=== PATIENT | male | born 1980 | race Caucasian/White ===

== ENCOUNTER → 2019-09-30 17:48 | Outpatient (CLI) | payer OTHER, SELFPAY ==
--- NOTE | 2019-09-30 17:54 | DI.MRI.S_ITS ---
PROCEDURE: MR LUMBAR SPINE WO CON INDICATIONS: LOW BACK PAIN, RIGHT SIDED SCIATICA TECHNIQUE: Noncontrast sagittal T1 spin echo and T2 fast echo, sagittal STIR, axial T1 and T2 fast spin echo through the lumbar spine. In cases with scoliosis, additional coronal T2 fast spin echo may be performed. COMPARISON: None. FINDINGS: Image quality: Excellent. Alignment and Curvature: There is normal bony alignment. Bone Marrow: Marrow is of normal overall signal. No acute vertebral body compression fractures. Spinal Cord: Conus medullaris terminates at the L1 level. Visualized cord demonstrates normal signal and size. Paraspinous Soft Tissues: No paravertebral masses. L1-L2: Normal appearance. L2-L3: Normal appearance. L3-L4: Normal appearance. L4-L5: Mild to moderate degenerative disc height reduction and disc desiccation with a slight posterior disc bulge across the midline, and with a symmetric facet osteoarthritis left greater than right resulting in mild to moderate left and minimal right foraminal stenosis. There is potential for left-sided nerve root impingement involving the L4 nerve root as a result at the neural foraminal level.. L5-S1: Moderate degenerative disc desiccation and disc height reduction is present, slightly greater than at the level immediately above, and at the right posterolateral disc annulus there is a focal disc herniation that extrudes into the posterolateral recess and neural foramen measuring up to 1.4 cm transverse, 1.1 cm AP and 1.3 cm craniocaudad. This directly impinges on the normal course of the right L5 nerve root. The thecal sac on the right is also mildly distorted towards the midline.. IMPRESSION: 1. Contiguous disc herniation measuring up to 1.1 x 1.3 x 1.4 cm is present at the right L5-S1 posterolateral recess and neural foramen impinging directly on the course of the right L5 nerve root and likely also impinging on the right S1 nerve root within the spinal canal. 2. Asymmetric foraminal stenosis is present at L4-5, left greater than right, but without definite nerve root impingement at time of imaging identified involving the left L4 nerve root. 3. More superiorly the knee disc and facet appearance is normal. Dictated by: Brett Devine M.D. on 10/01/2019 at 10:20 Approved by: Brett Devine M.D. on 10/01/2019 at 10:28
== END ==
PROVIDERS: Referring Provider Physician Assistant Medical; Visit Provider Physician Assistant Medical
DX: M54.5 Low back pain (principal); M51.17 Intervertebral disc disorders with radiculopathy, lumbosacral region; M48.061 Spinal stenosis, lumbar region without neurogenic claudication
CPT/HCPCS: 72148